=== PATIENT | female | born 1965 | race Caucasian/White ===

== ENCOUNTER 2018-07-16 10:10 | Emergency (ER) | payer OTHER ==
[~2018-07-16] VITALS: Ht 154.9 cm; Wt 71.7 kg
[2018-07-16 10:26] VITALS: BP 158/87
[2018-07-16] MEDS ORDERED: TETANUS-DIPTH-ACEL PERTUSSIS 0.5ML SYRG IM ONE (10:45)
[2018-07-16] MEDS ORDERED: LIDOCAINE 1% HCL (LOCAL ANESTH.) INJ 20ML MDV IJ ONE (10:45)
== END 2018-07-16 11:19 | disposition home or self-care (01) ==
LOC: ER 10:10
DX: S61.512A Laceration without foreign body of left wrist, initial encounter (principal); S61.532A Puncture wound without foreign body of left wrist, initial encounter; W54.0XXA Bitten by dog, initial encounter; Y93.89 Activity, other specified; Y92.89 Other specified places as the place of occurrence of the external cause; Y99.8 Other external cause status
CPT/HCPCS: 12002; 90471; 90715; 99283; J2001

== ENCOUNTER 2020-12-13 05:52 | Inpatient (IN) | payer OTHER ==
[~2020-12-13] VITALS: Ht 154.9 cm; Wt 64.4 kg
[2020-12-13] MEDS ORDERED: SODIUM CHLORIDE 0.9% 1,000 ML IV ONE (06:45)
[2020-12-13] MEDS ORDERED: ONDANSETRON HCL 4 MG/2 ML VIAL IV ONE (06:45)
[2020-12-13] MEDS ORDERED: SODIUM CHLORIDE 0.9% 1,000 ML IVB ONE (06:45)
[2020-12-13] MEDS ORDERED: MORPHINE SULFATE 4 MG/ML SYR/VIAL IV ONE (06:45)
[2020-12-13 08:17] LABS: Basophils # (auto) 0 10 ^3/uL (0-0.2); Basophils % (auto) 0.5 % (0.0-2.0); Eosinophils # (auto) 0.1 10 ^3/uL (0-0.8); Eosinophils % (auto) 0.7 % (0.0-7.0); Hematocrit 37.7 % (36.0-46.0); Hemoglobin 12.4 g/dL (12.2-16.2); Lymphocytes # (auto) 1.5 10 ^3/uL (0.4-5.4); Lymphocytes % (auto) 16.3 % (10.0-50.0); Mean Corpuscular Hemoglobin 28.9 pg (28.0-32.0); Mean Corpuscular Volume 87.7 fL (80.0-100.0); Monocytes # (auto) 0.5 10 ^3/uL (0-1.3); Monocytes % (auto) 5.4 % (0.0-12.0); Neutrophils # (auto) 7.2 10 ^3/uL (1.6-8.6); Neutrophils % (auto) 77.1 % (37.0-80.0); Nucleated Red Blood Cells % 0.1 %; Platelet Count (auto) 302 10^3/uL (140-450); Red Blood Cells 4.29 10^6/uL (4.0-5.20); Red Cell Distribution Width 16.6 % (11.8-14.3); White Blood Cell 9.3 10^3/uL (4.4-10.8)
[2020-12-13 08:33] LABS: Albumin 3.3 g/dL (3.4-5.0); Calcium 8.2 mg/dL (8.5-10.1); Magnesium 2.2 mg/dL (1.6-2.6); Potassium 3.9 mmol/L (3.5-5.1)
[2020-12-13 08:39] LABS: BUN/Creatinine Ratio 21.6; Bilirubin, Total 0.6 mg/dL (0.2-1.0); INR 1.02 (0.9-1.15); Partial Thromboplastin Time 24.7 sec (23.0-31.2)
[2020-12-13] MEDS ORDERED: MORPHINE SULF INJ 2 MG/ML SYRINGE 1ML ONE (09:07)
[2020-12-13] MEDS ORDERED: MORPHINE SULF INJ 2 MG/ML SYRINGE 1ML IV ONE (09:15)
[2020-12-13] MEDS ORDERED: DexAMETHasone SOD PHOS 10MG/1ML VIAL INJ IV ONE (09:30)
[2020-12-13] MEDS ORDERED: DOXYCYCLINE 100MG/250ML 250 ML IV ONE (09:30)
[2020-12-13] MEDS ORDERED: MORPHINE SULF INJ 2 MG/ML SYRINGE 1ML IV PRN ×2 (11:15→13:15)
[2020-12-13] MEDS ORDERED: NITROGLYCERIN 0.4 MG SL TAB SL PRN ×2 (11:15→13:15)
[2020-12-13 11:36] LABS: Urine Bacteria NONE SEEN /hpf (None Seen); Urine Blood Negative /uL (Negative); Urine Mucus FEW (None Seen); Urine Specific Gravity 1.029 (1.001-1.035); Urine WBC 88 /hpf (0 - 5)
[2020-12-13] MEDS ORDERED: LORazepam 0.5 MG TAB PO PRN (13:15)
[2020-12-13] MEDS ORDERED: HYDROcodone-ACET 5/325MG TAB PO PRN (13:15)
[2020-12-13] MEDS ORDERED: DOCUSATE SOD 100 MG CAP PO PRN (13:15)
[2020-12-13] MEDS ORDERED: CEFTRIAXONE SODIUM 2 GM in D5W 5% 50 ML IV ONE (13:15)
[2020-12-13] MEDS ORDERED: ALUM & MAG HYDROX-SIMETH LIQ(MAALOX) 30 ML PO PRN (13:15)
[2020-12-13] MEDS ORDERED: ACETAMINOPHEN 325 MG TAB PO PRN (13:15)
[2020-12-13] MEDS ORDERED: CLINDAMYCIN 600MG IV 50 ML IV ONE (13:15)
[2020-12-13] MEDS ORDERED: ASPirin 81 mg TAB PO ONE (13:30)
[2020-12-13] MEDS ORDERED: ENOXAPARIN SOD 40 MG/0.4 ML SYRINGE SC ONE (13:30)
[2020-12-13] MEDS ORDERED: FUROSEMIDE 20 MG/2 ML VIAL IV ONE (13:30)
[2020-12-13] MEDS ORDERED: LISINOPRIL 5 MG TAB PO ONE (13:30)
[2020-12-13] MEDS ORDERED: CARVEDILOL 3.125 MG TAB PO ONE (13:30)
[2020-12-13] MEDS: CLINDAMYCIN 600MG IV 50 ML IV SCH ×2 (13:31→21:20)
[2020-12-13 15:36] LABS: Barbiturate Scree,Urine NEGATIVE (NEGATIVE); Benzodiazephine Screen, Urine NEGATIVE (NEGATIVE); Cannabinoid Screen, Urine NEGATIVE (NEGATIVE); Cocaine Screen, Urine NEGATIVE (NEGATIVE); Phencyclidine Screen, Urine NEGATIVE (NEGATIVE)
[2020-12-13 15:43] LABS: Amphetamine Screen, Urine NEGATIVE (NEGATIVE); Opiate Scree,Urine POSITIVE (NEGATIVE)
[2020-12-13 16:40] LABS: Cholesterol 156 mg/dL (< 200); HDL Cholesterol 43 mg/dL (40-59); LDL Cholesterol 91 mg/dL (< 100); Triglycerides 152 mg/dL (< 150)
[2020-12-13] MEDS: FUROSEMIDE 20 MG/2 ML VIAL IV SCH (18:00)
[2020-12-13 20:00] VITALS: BP 111/77
[2020-12-13] MEDS: MORPHINE SULF INJ 2 MG/ML SYRINGE 1ML IV PRN (20:26)
[2020-12-13] MEDS: ATORVASTATIN 20 MG TAB PO SCH (21:20)
[2020-12-13] MEDS: CARVEDILOL 3.125 MG TAB PO SCH (21:41)
[2020-12-13] MEDS ORDERED: FAMOTIDINE (10MG/ML) 2ML VL IV SCH (22:00)
[2020-12-13 22:14] VITALS: BP 104/64
[2020-12-14] MEDS: MORPHINE SULF INJ 2 MG/ML SYRINGE 1ML IV PRN ×3 (03:25→13:50)
[2020-12-14 04:35] VITALS: BP 98/70
[2020-12-14] MEDS: CLINDAMYCIN 600MG IV 50 ML IV SCH (05:27)
[2020-12-14] MEDS: FUROSEMIDE 20 MG/2 ML VIAL IV SCH ×2 (05:27→17:30)
[2020-12-14 06:06] LABS: Basophils # (auto) 0 10 ^3/uL (0-0.2); Basophils % (auto) 0.2 % (0.0-2.0); Eosinophils # (auto) 0 10 ^3/uL (0-0.8); Eosinophils % (auto) 0.1 % (0.0-7.0); Hematocrit 36.7 % (36.0-46.0); Hemoglobin 12.4 g/dL (12.2-16.2); Lymphocytes # (auto) 0.9 10 ^3/uL (0.4-5.4); Lymphocytes % (auto) 13.7 % (10.0-50.0); Mean Corpuscular Hemoglobin 29.8 pg (28.0-32.0); Mean Corpuscular Hgb Conc. 33.7 g/dL (32.0-36.0); Mean Corpuscular Volume 88.4 fL (80.0-100.0); Monocytes # (auto) 0.6 10 ^3/uL (0-1.3); Monocytes % (auto) 8.7 % (0.0-12.0); Neutrophils # (auto) 5.3 10 ^3/uL (1.6-8.6); Neutrophils % (auto) 77.3 % (37.0-80.0); Platelet Count (auto) 277 10^3/uL (140-450); Red Blood Cells 4.15 10^6/uL (4.0-5.20); Red Cell Distribution Width 16.3 % (11.8-14.3); White Blood Cell 6.9 10^3/uL (4.4-10.8)
[2020-12-14 06:12] LABS: INR 1.05 (0.9-1.15); Partial Thromboplastin Time 23.6 sec (23.0-31.2)
[2020-12-14 06:22] LABS: Albumin 3.1 g/dL (3.4-5.0); Anion Gap 9 (5-15); Blood Urea Nitrogen 20 mg/dL (7-18); Calcium 8.1 mg/dL (8.5-10.1); Carbon Dioxide 22 mmol/L (21-32); Chloride 108 mmol/L (98-107); Glucose 126 mg/dL (74-106); Magnesium 2.1 mg/dL (1.6-2.6); Potassium 4.5 mmol/L (3.5-5.1); Sodium 139 mmol/L (136-145)
[2020-12-14 06:29] LABS: Alanine Aminotransferase 85 U/L (13-56); Alkaline Phosphatase 94 U/L (45-117); Aspartate Aminotransferase 43 U/L (15-37); BUN/Creatinine Ratio 21.7; Bilirubin, Total 0.6 mg/dL (0.2-1.0); GFR African American 81 mL/min; GFR Non-African American 67 mL/min; Phosphorus 3.9 mg/dL (2.5-4.90); Total Protein 5.7 g/dL (6.4-8.2)
[2020-12-14 09:00] VITALS: BP 98/66
[2020-12-14] MEDS: ASPirin 81 mg TAB PO SCH (09:33)
[2020-12-14] MEDS: LISINOPRIL 5 MG TAB PO SCH (09:35)
[2020-12-14] MEDS: CARVEDILOL 3.125 MG TAB PO SCH ×2 (09:35→21:40)
[2020-12-14] MEDS: ENOXAPARIN SOD 40 MG/0.4 ML SYRINGE SC SCH (09:36)
[2020-12-14] MEDS ORDERED: CEFTRIAXONE SODIUM 2 GM in D5W 5% 50 ML IV SCH (10:00)
[2020-12-14 12:58] VITALS: BP 97/65
[2020-12-14] MEDS ORDERED: CHOLECALCIFEROL (VITD3) 2,000 UNIT CAP/TAB PO ONE (14:15)
[2020-12-14] MEDS ORDERED: PANTOPRAZOLE 40 MG/10 ML VIAL INJ IV ONE (14:15)
[2020-12-14 17:00] VITALS: BP 107/77
[2020-12-14] MEDS ORDERED: ONDANSETRON HCL 4 MG/2 ML VIAL IV PRN (17:15)
[2020-12-14] MEDS ORDERED: DOBUTamine 1000MCG/ML 250 ML IV SCH (17:45)
[2020-12-14] MEDS: ATORVASTATIN 20 MG TAB PO SCH (21:28)
[2020-12-14 21:55] VITALS: BP 107/72
[2020-12-15] MEDS: MORPHINE SULF INJ 2 MG/ML SYRINGE 1ML IV PRN ×3 (04:51→16:40)
[2020-12-15 05:00] VITALS: BP 129/81
[2020-12-15] MEDS: FUROSEMIDE 20 MG/2 ML VIAL IV SCH (05:39)
[2020-12-15 05:55] LABS: Basophils # (auto) 0 10 ^3/uL (0-0.2); Basophils % (auto) 0.5 % (0.0-2.0); Eosinophils # (auto) 0.1 10 ^3/uL (0-0.8); Eosinophils % (auto) 1.7 % (0.0-7.0); Hematocrit 36.8 % (36.0-46.0); Hemoglobin 12.2 g/dL (12.2-16.2); Lymphocytes # (auto) 1.7 10 ^3/uL (0.4-5.4); Lymphocytes % (auto) 22.1 % (10.0-50.0); Mean Corpuscular Hemoglobin 29.2 pg (28.0-32.0); Mean Corpuscular Volume 88.2 fL (80.0-100.0); Monocytes # (auto) 0.6 10 ^3/uL (0-1.3); Monocytes % (auto) 7.9 % (0.0-12.0); Neutrophils # (auto) 5.1 10 ^3/uL (1.6-8.6); Neutrophils % (auto) 67.8 % (37.0-80.0); Platelet Count (auto) 254 10^3/uL (140-450); Red Blood Cells 4.17 10^6/uL (4.0-5.20); Red Cell Distribution Width 16.3 % (11.8-14.3); White Blood Cell 7.5 10^3/uL (4.4-10.8)
[2020-12-15 06:14] LABS: Albumin 3.1 g/dL (3.4-5.0); Calcium 8.4 mg/dL (8.5-10.1); Magnesium 2.2 mg/dL (1.6-2.6); Potassium 3.6 mmol/L (3.5-5.1)
[2020-12-15 06:17] LABS: BUN/Creatinine Ratio 27.6; Bilirubin, Total 0.5 mg/dL (0.2-1.0); Total Protein 5.8 g/dL (6.4-8.2)
[2020-12-15 09:00] VITALS: BP 119/79
[2020-12-15] MEDS: ASPirin 81 mg TAB PO SCH (09:17)
[2020-12-15] MEDS: CARVEDILOL 3.125 MG TAB PO SCH (09:18)
[2020-12-15] MEDS: LISINOPRIL 5 MG TAB PO SCH (09:19)
[2020-12-15] MEDS: ENOXAPARIN SOD 40 MG/0.4 ML SYRINGE SC SCH (09:19)
[2020-12-15] MEDS ORDERED: CHOLECALCIFEROL (VITD3) 2,000 UNIT CAP/TAB PO SCH (10:00)
[2020-12-15] MEDS ORDERED: PANTOPRAZOLE 40 MG/10 ML VIAL INJ IV SCH (10:00)
[2020-12-15] MEDS ORDERED: LISI-275 PO (10:54)
[2020-12-15] MEDS ORDERED: ATOR20TA50 PO (10:54)
[2020-12-15] MEDS ORDERED: ASPI1CHW15 PO (10:54)
[2020-12-15] MEDS ORDERED: PANT40TA2 PO (10:54)
[2020-12-15] MEDS ORDERED: CAR3125T PO (10:54)
[2020-12-15] MEDS ORDERED: CHOL1CAP47 PO (10:54)
[2020-12-15] MEDS ORDERED: FURO1TAB31 PO (10:54)
[2020-12-15] MEDS ORDERED: POTA1TAB61 PO (11:03)
[2020-12-15] MEDS ORDERED: DOCU100C10 PO (11:03)
[2020-12-15 13:00] VITALS: BP 110/92
[2020-12-15 16:35] VITALS: BP 110/67
[2020-12-15 17:21] VITALS: BP 115/75
== END 2020-12-15 18:15 | disposition home or self-care (01) | DRG 241 ==
LOC: ER 05:52 → TELE 11:02 → TELE-CENTR 18:18
PROVIDERS: ADMIT Hospitalist; ATTEND Internal Medicine
DX: K29.70 Gastritis, unspecified, without bleeding (principal); I50.23 Acute on chronic systolic (congestive) heart failure; I42.0 Dilated cardiomyopathy; I08.1 Rheumatic disorders of both mitral and tricuspid valves; E88.09 Other disorders of plasma-protein metabolism, not elsewhere classified; K75.81 Nonalcoholic steatohepatitis (NASH); I11.0 Hypertensive heart disease with heart failure; Z20.822 Contact with and (suspected) exposure to COVID-19; K21.9 Gastro-esophageal reflux disease without esophagitis; M85.80 Other specified disorders of bone density and structure, unspecified site; B17.9 Acute viral hepatitis, unspecified; E66.9 Obesity, unspecified; E55.9 Vitamin D deficiency, unspecified; E78.1 Pure hyperglyceridemia; K76.1 Chronic passive congestion of liver; E78.5 Hyperlipidemia, unspecified; F15.90 Other stimulant use, unspecified, uncomplicated; M19.90 Unspecified osteoarthritis, unspecified site; Z68.25 Body mass index [BMI] 25.0-25.9, adult; Z82.49 Family history of ischemic heart disease and other diseases of the circulatory system; Z83.3 Family history of diabetes mellitus; Z82.0 Family history of epilepsy and other diseases of the nervous system; Z87.440 Personal history of urinary (tract) infections; Z87.442 Personal history of urinary calculi; Z90.49 Acquired absence of other specified parts of digestive tract
CPT/HCPCS: 36415; 71046; 74176; 74181; 76705; 80053; 80061; 80307; 81001; 82150; 82306; 82728; 83036; 83605; 83690; 83735; 83880; 84100; 84443; 84484; 85025; 85379; 85610; 85730; 87040; 87086; 87426; 93005; 93306; 96361; 96365; 96375; 96376; C9113; G0378; J0696; J1100; J2405; J3490; J7060

== ENCOUNTER 2021-01-16 17:27 | Emergency (ER) | payer OTHER ==
[~2021-01-16] VITALS: Ht 154.9 cm; Wt 61.2 kg
[~2021-01-16 17:27] MED LIST: ASPI1CHW15 PO; ATOR20TA50 PO; CAR3125T PO; CHOL1CAP47 PO; DOCU100C10 PO; FURO1TAB31 PO; LISI-275 PO; PANT40TA2 PO; POTA1TAB61 PO
[2021-01-16 18:18] LABS: Basophils # (auto) 0 10 ^3/uL (0-0.2); Basophils % (auto) 0.5 % (0.0-2.0); Eosinophils # (auto) 0.4 10 ^3/uL (0-0.8); Eosinophils % (auto) 4.6 % (0.0-7.0); Hematocrit 42.3 % (36.0-46.0); Hemoglobin 14.3 g/dL (12.2-16.2); Lymphocytes # (auto) 2.7 10 ^3/uL (0.4-5.4); Lymphocytes % (auto) 28.2 % (10.0-50.0); Mean Corpuscular Hemoglobin 28.6 pg (28.0-32.0); Mean Corpuscular Hgb Conc. 33.8 g/dL (32.0-36.0); Mean Corpuscular Volume 84.5 fL (80.0-100.0); Monocytes # (auto) 0.7 10 ^3/uL (0-1.3); Monocytes % (auto) 7.4 % (0.0-12.0); Neutrophils # (auto) 5.7 10 ^3/uL (1.6-8.6); Neutrophils % (auto) 59.3 % (37.0-80.0); Nucleated Red Blood Cells % 0.1 %; Red Cell Distribution Width 14.2 % (11.8-14.3); White Blood Cell 9.6 10^3/uL (4.4-10.8)
[2021-01-16 18:27] LABS: Albumin 3.9 g/dL (3.4-5.0); Calcium 9.4 mg/dL (8.5-10.1); Potassium 3.7 mmol/L (3.5-5.1)
[2021-01-16 18:32] LABS: BUN/Creatinine Ratio 22.6; Bilirubin, Total 0.4 mg/dL (0.2-1.0); Total Protein 7.8 g/dL (6.4-8.2)
[2021-01-16 20:40] LABS: Urine Bacteria FEW /hpf (None Seen); Urine Blood Negative /uL (Negative); Urine Hyaline Cast MOD /lpf (0 - 2); Urine Specific Gravity 1.008 (1.001-1.035); Urine WBC 4 /hpf (0 - 5)
[2021-01-16] MEDS ORDERED: IOHEXOL 300 MG/ML 100ML BOTTLE IJ ONE (22:52)
[2021-01-17] MEDS ORDERED: cefTRIAXone 1GM/50ML D5W 50 ML IV ONE (01:00)
[2021-01-17 01:01] VITALS: BP 133/74
== END 2021-01-17 01:53 | disposition home or self-care (01) ==
LOC: ER 17:27
DX: R10.11 Right upper quadrant pain (principal); R11.0 Nausea; R06.02 Shortness of breath; I50.9 Heart failure, unspecified; Z90.49 Acquired absence of other specified parts of digestive tract; Z87.891 Personal history of nicotine dependence; Z79.82 Long term (current) use of aspirin; Z79.899 Other long term (current) drug therapy
CPT/HCPCS: 36415; 71045; 74177; 80053; 81001; 82150; 83605; 83690; 83880; 84484; 85025; 93005; 96365; 99285; J0696; Q9967

== ENCOUNTER 2024-02-09 08:27 | Day surgery (SDC) | payer OTHER ==
[2024-02-09] VITALS (9 sets, daily range): BP systolic 106–139; BP diastolic 67–82; PULSE 12–88; RESP 12–20; O2SAT 92–96
[~2024-02-09] VITALS: Ht 154.9 cm; Wt 68.9 kg
[~2024-02-09 08:27] MED LIST changes: +ASPI-736 PO; -ASPI1CHW15 PO; -CAR3125T PO; +DOCU-265 PO; -DOCU100C10 PO; +DULO20CA PO; -FURO1TAB31 PO; -LISI-275 PO; +LISI10TA34 PO; -POTA1TAB61 PO
[2024-02-09] MEDS ORDERED: HEPARIN SODIUM (PORCINE) 5000 UNITS/ML 1ML VIAL ONE (10:32)
[2024-02-09] MEDS ORDERED: LIDOCAINE 2%HCL (LOCAL ANESTH.) INJ 20ML MDV ONE (10:32)
[2024-02-09] MEDS ORDERED: ANGIOMAX 250 MG VIAL IV ONE (10:32)
[2024-02-09] MEDS ORDERED: SODIUM CHL 0.9% 0 ML ONE (10:32)
[2024-02-09] MEDS ORDERED: IODIXANOL 320MG/ML 100ML BTL IV ONE (10:32)
[2024-02-09] MEDS ORDERED: MIDAZOLAM HCL 2MG/2ML 2ml VIAL (1mg/ml) ONE (10:32)
[2024-02-09] MEDS ORDERED: fentaNYL CITRATE 100 MCG/2 ML VL ONE (10:32)
[2024-02-09] MEDS ORDERED: VERAPAMIL 2.5MG/ML INJ 2ML VIAL IV ONE (10:32)
== END 2024-02-09 14:23 | disposition home or self-care (01) ==
LOC: CATH 08:27
PROVIDERS: ATTEND Internal Medicine
DX: R94.39 Abnormal result of other cardiovascular function study (principal); I50.9 Heart failure, unspecified; Z79.82 Long term (current) use of aspirin; Z79.899 Other long term (current) drug therapy; Z82.49 Family history of ischemic heart disease and other diseases of the circulatory system; Z83.42 Family history of familial hypercholesterolemia; Z82.0 Family history of epilepsy and other diseases of the nervous system; Z83.3 Family history of diabetes mellitus
CPT/HCPCS: 93458; C1769; C1887; C1894; J1644; J2250; J3010; J7030; Q9967; 99152